=== PATIENT | male | born 1975 | race Caucasian/White ===

== ENCOUNTER 2019-05-26 19:38 | Emergency (ER) | payer OTHER ==
[~2019-05-26] VITALS: Ht 172.7 cm; Wt 97.7 kg
[2019-05-26] MEDS ORDERED: ALPR0.5T8 PO (20:00)
[2019-05-26] MEDS ORDERED: GABA-531 PO (20:00)
[2019-05-26] MEDS ORDERED: METHOCARBAMOL 750 MG TABLET PO ONE (22:15)
[2019-05-26] MEDS ORDERED: HYDROCODONE/ACETAMINOPHEN 5-325 MG TABLET PO ONE (22:15)
[2019-05-26] MEDS ORDERED: KETOROLAC TROMETHAMINE 60 MG/2 ML VIAL IM ONE (22:15)
[2019-05-26 23:44] VITALS: BP 135/75
== END 2019-05-26 23:40 | disposition home or self-care (01) ==
LOC: EMS 19:39
DX: S32.038A Other fracture of third lumbar vertebra, initial encounter for closed fracture (principal); Z79.899 Other long term (current) drug therapy; X58.XXXA Exposure to other specified factors, initial encounter; Y93.89 Activity, other specified; Y92.89 Other specified places as the place of occurrence of the external cause; Y99.8 Other external cause status
CPT/HCPCS: 72100; 96372; 99283; J1885